=== PATIENT | female | born 1950 | race Caucasian/White ===

== ENCOUNTER 2021-12-26 16:26 | Inpatient (IN) ==
[2021-12-26] MEDS ORDERED: Ibuprofen 600 MG TABLET PO ONE (18:16)
[2021-12-26 19:05] LABS: Basophils # 0.1 K/mcL (0.0-0.2); Basophils % 0.8 %; Eosinophils # 0.2 K/mcL (0.0-0.6); Eosinophils % 2.6 %; Hemoglobin 11.5 g/dL (11.5-15.4); Immature Granulocytes % 0.3 % (0-4); Lymphocytes # 1.2 K/mcL (0.6-4.6); Lymphocytes % 17.9 %; Mean Corpuscular HGB Conc 31.9 g/dL (31.6-35.5); Mean Corpuscular Hemoglobin 32.2 pg (28.0-33.3); Mean Corpuscular Volume 100.8 fL (83.0-100.0); Mean Platelet Volume 10.2 fL (9.4-12.4); Monocytes # 0.5 K/mcL (0.0-1.3); Monocytes % 7.3 %; Neutrophils # 4.7 K/mcL (1.6-8.9); Platelet Count 299 K/mcL (140-400); Red Blood Count 3.57 M/mcL (3.82-4.97); Red Cell Distribution Width 14.3 % (11.5-14.5); Segmented Neutrophils % 71.1 %; White Blood Count 6.6 K/mcL (4.3-11.1)
[2021-12-26 19:20] LABS: Calcium 9.2 mg/dL (8.6-10.3); Potassium 3.3 mEq/L (3.5-5.1)
[2021-12-26] MEDS ORDERED: Nystatin Ointment 15 GM TUBE TP ONE (20:44)
[2021-12-27] MEDS ORDERED: Acetaminophen 325 MG TABLET PO PRN (00:25)
[2021-12-27] MEDS ORDERED: Melatonin 3 MG TABLET PO PRN (00:25)
[2021-12-27] MEDS ORDERED: Naloxone 0.4 MG/ML INJ IVP PRN (00:25)
[2021-12-27] MEDS ORDERED: *HR* HYDROcodone/Acet 5/325 mg TABLET PO PRN (00:25)
[2021-12-27] MEDS ORDERED: Ondansetron 4 MG/2 ML VIAL IVP PRN (00:25)
[2021-12-27] MEDS: 0.9 % Sodium Chloride 1,000 ML IVC SCH ×3 (02:17→18:42)
[2021-12-27 02:40] LABS: Hematocrit 31.5 % (35.3-44.9); Hemoglobin 10.8 g/dL (11.5-15.4); Mean Corpuscular HGB Conc 34.3 g/dL (31.6-35.5); Mean Corpuscular Volume 96.3 fL (83.0-100.0); Mean Platelet Volume 10.3 fL (9.4-12.4); Platelet Count 285 K/mcL (140-400); Red Blood Count 3.27 M/mcL (3.82-4.97); Red Cell Distribution Width 14.1 % (11.5-14.5); White Blood Count 6.1 K/mcL (4.3-11.1)
[2021-12-27 02:47] LABS: Prothrombin Time 11.1 Seconds (9.4-12.1)
[2021-12-27 02:51] LABS: Calcium 9.5 mg/dL (8.6-10.3); Magnesium 1.8 mg/dL (1.6-2.6); Phosphorous 3.6 mg/dL (2.7-4.5); Potassium 3.8 mEq/L (3.5-5.1)
[2021-12-27] MEDS ORDERED: Isovue-370 500 ML BOTTLE IVP ONE (03:00)
[2021-12-27] MEDS ORDERED: D5% in Water 1,000 ML IVC PRN (03:01)
[2021-12-27] MEDS ORDERED: *HR* Dextrose 50 % in Water (Syg) 50 ML SYRINGE IVP PRN (03:01)
[2021-12-27] MEDS ORDERED: Dextrose Gel 15 GM/37.5 ML TUBE PO PRN ×2 (03:01)
[2021-12-27] MEDS ORDERED: Saliva Stimulant 44.3ml BOTTLE PO PRN (04:50)
[2021-12-27] MEDS: *HR* Heparin 5,000 UNIT/ML VIAL SQ SCH ×3 (05:32→21:53)
[2021-12-27] MEDS: Multivit/Ca/Min/Fe/FA 1 TAB TABLET PO SCH (09:05)
[2021-12-27] MEDS: Nystatin Ointment 15 GM TUBE TP SCH ×4 (11:58→21:59)
[2021-12-27] MEDS: amLODIPine 5 MG TABLET PO SCH (14:03)
[2021-12-28 03:25] LABS: Bilirubin,Urine Negative (Negative); Blood,Urine Negative (Negative); Clarity,Urine Clear (Clear); Color,Urine Colorless (Yellow); Glucose,Urine (UA) Normal (Normal); Ketones,Urine Negative (Negative); Leukocyte Esterase,Urine Negative (Negative); Nitrite,Urine Negative (Negative); PH,Urine 5.5 pH Units (5.0-8.0); Protein,Urine Negative (Neg-Trace); Specific Gravity,Urine 1.014 (1.010-1.025); Urobilinogen,Urine Normal (Normal)
[2021-12-28] MEDS: *HR* Heparin 5,000 UNIT/ML VIAL SQ SCH ×3 (05:22→20:35)
[2021-12-28 06:03] LABS: Potassium 3.5 mEq/L (3.5-5.1)
[2021-12-28 06:05] LABS: % Iron Saturation 22 % (15-50); Iron 65 mcg/dL (50-170); Transferrin 215 mg/dL (203-362)
[2021-12-28 06:19] LABS: Ferritin 84 ng/mL (10-120)
[2021-12-28 06:25] LABS: Folate 4.4 ng/mL (3.0-16.0)
[2021-12-28 07:06] LABS: Hematocrit 28.5 % (35.3-44.9); Hemoglobin 9.8 g/dL (11.5-15.4); Mean Corpuscular HGB Conc 34.4 g/dL (31.6-35.5); Mean Corpuscular Hemoglobin 33.2 pg (28.0-33.3); Mean Corpuscular Volume 96.6 fL (83.0-100.0); Mean Platelet Volume 10.9 fL (9.4-12.4); Platelet Count 273 K/mcL (140-400); Red Blood Count 2.95 M/mcL (3.82-4.97); Red Cell Distribution Width 14.3 % (11.5-14.5)
[2021-12-28] MEDS: Nystatin Ointment 15 GM TUBE TP SCH ×4 (08:28→20:34)
[2021-12-28] MEDS: 0.9 % Sodium Chloride 1,000 ML IVC SCH (08:29)
[2021-12-28] MEDS: Multivit/Ca/Min/Fe/FA 1 TAB TABLET PO SCH (08:34)
[2021-12-28] MEDS: amLODIPine 5 MG TABLET PO SCH (08:34)
[2021-12-28] MEDS ORDERED: HYDROCHLOROTHIAZID PO SCH (09:00)
[2021-12-28] MEDS ORDERED: TRIAMTERENE PO SCH (09:00)
[2021-12-28] MEDS: hydrALAZINE 25 MG TABLET PO SCH (15:37)
[2021-12-28] MEDS: Triamcinolone Acet 0.1% CRM 15 GM TUBE TP SCH (15:38)
[2021-12-28] MEDS: Latanoprost 2.5 ML BOTTLE BOTH EYES SCH (20:33)
[2021-12-28] MEDS: Dorzolamide/Timolol OPTH 10 ML BOTTLE BOTH EYES SCH (20:35)
[2021-12-29] MEDS: hydrALAZINE 25 MG TABLET PO SCH ×3 (00:10→16:51)
[2021-12-29] MEDS: *HR* Heparin 5,000 UNIT/ML VIAL SQ SCH ×3 (04:56→21:49)
[2021-12-29] MEDS: Triamcinolone Acet 0.1% CRM 15 GM TUBE TP SCH (08:37)
[2021-12-29] MEDS: Multivit/Ca/Min/Fe/FA 1 TAB TABLET PO SCH (08:37)
[2021-12-29] MEDS: amLODIPine 5 MG TABLET PO SCH (08:37)
[2021-12-29] MEDS: Nystatin Ointment 15 GM TUBE TP SCH ×4 (08:38→21:49)
[2021-12-29] MEDS: Latanoprost 2.5 ML BOTTLE BOTH EYES SCH (21:49)
[2021-12-29] MEDS: Dorzolamide/Timolol OPTH 10 ML BOTTLE BOTH EYES SCH (21:49)
[2021-12-30] MEDS: hydrALAZINE 25 MG TABLET PO SCH ×3 (00:44→16:54)
[2021-12-30] MEDS: *HR* Heparin 5,000 UNIT/ML VIAL SQ SCH ×2 (06:39→14:42)
[2021-12-30] MEDS: Multivit/Ca/Min/Fe/FA 1 TAB TABLET PO SCH (09:06)
[2021-12-30] MEDS: amLODIPine 5 MG TABLET PO SCH (09:06)
[2021-12-30] MEDS: Nystatin Ointment 15 GM TUBE TP SCH ×3 (09:07→16:55)
[2021-12-30] MEDS: Triamcinolone Acet 0.1% CRM 15 GM TUBE TP SCH (09:07)
[2021-12-30 11:30] VITALS: BP 144/82; PULSE 63; TEMP 98.3; O2SAT 97
== END 2021-12-30 17:54 | disposition hospice, home (50) | DRG 598 ==
LOC: 3ANU 16:26 → EMEROOARM 16:26 → SUATTDRO 21:11 → 3BNU 21:38
PROVIDERS: ADMIT Internal Medicine; ATTEND Registered Nurse